=== PATIENT | female | born 1970 | race Caucasian/White ===

== ENCOUNTER 2019-07-01 12:02 | Emergency (ER) | payer BC, OTHER ==
--- NOTE | 2019-07-01 12:22 | EDM.PDOC ---
ED HPI GENERAL MEDICAL PROBLEM - General Chief Complaint: Eye Problems Stated Complaint: EYE INFECTION Time Seen by Provider: 07/01/19 12:22 Source of Information: Reports: Patient History Limitations: Reports: No Limitations - History of Present Illness Onset: Today Duration: Improving (with less redness) Associated Symptoms: Reports: No Other Symptoms, Other (States that her vision is slightly blurred in both eyes earlier today.) eyes Pain Score (Numeric/FACES): 2 - Related Data Allergies Allergy/AdvReac Type Severity Reaction Status Date / Time No Known Allergies Allergy Verified 03/19/16 08:28 Home Meds: Home Meds Albuterol Sulfate [Proair Hfa] 8.5 gm IH 03/19/16 [History] Budesonide/Formoterol [Symbicort 160-4.5 Mcg Inhaler] 10.2 gm IH 03/19/16 [ History] Zolpidem [Ambien] 07/01/19 [History] Past Medical History HEENT History: Reports: None Cardiovascular History: Reports: None Respiratory History: Reports: Asthma Gastrointestinal History: Reports: None Genitourinary History: Reports: None [employer]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 Musculoskeletal History: Reports: None Neurological History: Reports: None Psychiatric History: Reports: None Endocrine/Metabolic History: Reports: None Hematologic History: Reports: None Immunologic History: Reports: None Oncologic (Cancer) History: Reports: None Dermatologic History: Reports: None - Infectious Disease History Infectious Disease History: Reports: None - Past Surgical History Musculoskeletal Surgical History: Reports: Other (See Below) Social & Family History - Family History Family Medical History: Noncontributory - Caffeine Use Caffeine Use: Reports: None ED ROS GENERAL - Review of Systems Review Of Systems: See Below Constitutional: Reports: No Symptoms HEENT: Reports: Eye Discharge (yellow discharge from both eyes earlier today but has cleared up now.), Eye Pain (minor eye pain in OU but is getting better.) Respiratory: Reports: No Symptoms Cardiovascular: Reports: No Symptoms Endocrine: Reports: No Symptoms GI/Abdominal: Reports: No Symptoms Skin: Reports: No Symptoms Neurological: Reports: No Symptoms ED EXAM GENERAL W FULL EYE - Physical Exam Exam: See Below Exam Limited By: No Limitations General Appearance: Alert, WD/WN, No Apparent Distress Eye Exam: Bilateral Eye: EOMI, Normal Fundi, Normal Inspection, PERRL, Other ( Normal fundus exam.) Visual Acuity (R) 20/: 40 Visual Acuity (L) 20/: 30 (OU is 20/20) With Correction: No Eyelids: Bilateral: Normal Appearance Conjunctiva & Sclera: Bilateral: Injected (very slightly injected.) Cornea Exam: Bilateral: Normal Appearance Extraocular Movements: Bilateral: Intact Pupillary Size: Bilateral: 4 mm Pupillary Reaction: Bilateral: Brisk Anterior Chamber: Bilateral: Normal Appearance Posterior Chamber: Bilateral: Normal Funduscopic Ears: Normal External Exam, Normal Canal, Hearing Grossly Normal, Normal TMs Nose: Normal Inspection, Normal Mucosa, No Blood Throat/Mouth: Normal Inspection, Normal Lips, Normal Teeth, Normal Gums, Normal Oropharynx, Normal Voice, No Airway Compromise Head: Atraumatic, Normocephalic Neck: Normal Inspection, Supple, Non-Tender, Full Range of Motion Respiratory/Chest: No Respiratory Distress, Lungs Clear, Normal Breath Sounds, No Accessory Muscle Use, Chest Non-Tender Cardiovascular: Normal Peripheral Pulses, Regular Rate, Rhythm, No Edema, No Gallop, No JVD, No Murmur, No Rub GI/Abdominal: Normal Bowel Sounds, Soft, Non-Tender (Male) Exam: Deferred (Female) Exam: Deferred Rectal (Males) Exam: Deferred Rectal (Female) Exam: Deferred Neurological: Alert, Oriented, CN II-XII Intact, Normal Cognition, Normal Gait, Normal Reflexes, No Motor/Sensory Deficits Course - Vital Signs Text/Narrative:: I discussed with the patient that she most likely has conjunctivitis and that she should do fine with Maxidex drops. She agrees with the discharge plan. Last Recorded V/S: Last Vital Signs Temp 97.2 F 07/01/19 12:20 Pulse 67 07/01/19 12:20 Resp 16 07/01/19 12:20 BP 137/64 07/01/19 12:20 Pulse Ox 96 07/01/19 12:20 - Orders/Labs/Meds Orders: Active Orders 24 hr Category Date Time Status Visual Acuity [Vision Test] [RC] ASDIRECTED Care 07/01/19 12:06 Active Meds: Medications Discontinued Medications Generic Name Dose Route Start Last Admin Trade Name Freq PRN Reason Stop Dose Admin Neomycin/Polymyxin/Dexamethasone 5 ml 07/01/19 12:49 Maxitrol Ophth Susp EYEBOTH ASDIRECTED PRN conjunctivitis Neomycin/Polymyxin/Dexamethasone 5 ml 07/01/19 13:09 Maxitrol Ophth Susp EYEBOTH 07/01/19 13:10 ASDIRECTED ONE Departure - Departure Time of Disposition: 13:01 Disposition: Home, Self-Care 01 Condition: Good Clinical Impression: Conjunctivitis of both eyes Qualifiers: Conjunctivitis type: acute Acute conjunctivitis type: unspecified Qualified Code(s): H10.33 - Unspecified acute conjunctivitis, bilateral - Discharge Information *PRESCRIPTION DRUG MONITORING PROGRAM REVIEWED*: Yes *COPY OF PRESCRIPTION DRUG MONITORING REPORT IN PATIENT CALIN: Yes Referrals: PCP,Not In Area [Primary Care Provider] - Forms: ED Department Discharge Additional Instructions: Take your eye drops as follows: Day 1, 2 drops both eyes every 8 hours; Day 2, two drop each eye every 12 hours; Day 3, one drop every 12 hours and Day 4, one drop in each eye. No more drops after day 4. Follow up with your PCP or eye doctor in the next two to four days. Rest for the next 12 hours. Return to the ED if your condition gets worse or should you have any questions or concerns. The following information is given to patients seen in the emergency department who are being discharged to home. This information is to outline your options for follow-up care. We provide all patients seen in our emergency department with a follow-up referral. The need for follow-up, as well as the timing and circumstances, are variable depending upon the specifics of your emergency department visit. If you don't have a primary care physician on staff, we will provide you with a referral. We always advise you to contact your personal physician following an emergency department visit to inform them of the circumstance of the visit and for follow-up with them and/or the need for any referrals to a consulting specialist. The emergency department will also refer you to a specialist when appropriate. This referral assures that you have the opportunity for follow-up care with a specialist. All of these measure are taken in an effort to provide you with optimal care, which includes your follow-up. Under all circumstances we always encourage you to contact your private physician who remains a resource for coordinating your care. When calling for follow-up care, please make the office aware that this follow-up is from your recent emergency room visit. If for any reason you are refused follow-up, please contact the [facility] Emergency Department at and asked to speak to the emergency department charge nurse. Sepsis Event Note - Focused Exam Vital Signs: Vital Signs Temp Pulse Resp BP Pulse Ox 07/01/19 12:20 97.2 F 67 16 137/64 96 Date Exam was Performed: 07/01/19 Time Exam was Performed: 13:10 - My Orders Last 24 Hours: My Active Orders 07/01/19 12:06 Visual Acuity [Vision Test] [RC] ASDIRECTED - Assessment/Plan Last 24 Hours: My Active Orders 07/01/19 12:06 Visual Acuity [Vision Test] [RC] ASDIRECTED
[2019-07-01 12:24] VITALS: BP 137/64; PULSE 67
[2019-07-01] MEDS ORDERED: Dexamethasone/Neomycin/Polymyxin B Ophth Susp 5 ML Bottle EYEBOTH PRN (12:49)
[2019-07-01] MEDS ORDERED: Dexamethasone/Neomycin/Polymyxin B Ophth Susp 5 ML Bottle EYEBOTH ONE (13:09)
== END 2019-07-01 13:45 | disposition home or self-care (01) ==
LOC: MW.ED 12:02
DX: H10.33 Unspecified acute conjunctivitis, bilateral (principal); J45.909 Unspecified asthma, uncomplicated; Z79.51 Long term (current) use of inhaled steroids
CPT/HCPCS: 99282; A9270

== ENCOUNTER 2019-07-04 02:09 | Emergency (ER) | payer BC, OTHER ==
[2019-07-04 03:11] LABS: BLOOD UREA NITROGEN,BUN 18 mg/dL (7.0-18.0); CARBON DIOXIDE,CO2 25.7 mmol/L (21.0-32.0); CHLORIDE,CL 105 mmol/L (98-107); GLUCOSE RANDOM 104 mg/dL (74-106); LIPASE 224 U/L (73-393); SODIUM,NA 144 mmol/L (136-145)
[2019-07-04] MEDS ORDERED: Iopamidol 755 Mg/ML 100 ML Bottle IVPUSH ONE (03:40)
--- NOTE | 2019-07-04 04:04 | CR ---
Indication: Pain, shortness of breath and right upper quadrant pain Technique: Chest 2 views Comparison: None Findings: Cardiovascular and mediastinum: Heart size and vasculature are normal in caliber and appearance. Lungs and pleural spaces: Lungs are clear. No sign of infiltrate or mass. No sign of pleural effusion. No pneumothorax. Bones and soft tissues: No significant findings. Impression: Unremarkable two view chest Dictated by Carlos Delvalle MD @ Jul 04 2019 4:01AM Signed by Dr. Carlos Delvalle @ Jul 04 2019 4:02AM
--- NOTE | 2019-07-04 04:17 | CT ---
INDICATION: Right upper quadrant pain TECHNIQUE: CT abdomen and pelvis acquired with 100 cc Isovue 370 intravenous contrast. COMPARISON: None. FINDINGS: Lower chest: Trace basilar discoid atelectasis. Liver: Diffusely decreased density liver consistent with fatty infiltration without focal lesion. Mild sparring adjacent to the gallbladder fossa. Gallbladder and bile ducts: Unremarkable. No stones or inflammation. No biliary dilatation. Pancreas: Unremarkable. No mass or inflammation. Spleen: Unremarkable. Normal in size. No masses. Adrenal glands: Unremarkable. No nodules. Kidneys: Unremarkable. No masses, stones, or hydronephrosis. GI tract: Unremarkable. Normal in caliber. No sign of mass or inflammation. Normal appendix. Vasculature: Unremarkable. Pelvis: Bladder unremarkable. Status post hysterectomy. No adnexal mass. Bones: Mild degenerative disc disease lumbar spine. IMPRESSION: 1. No dilated bowel or localized inflammation. 2. Fatty infiltration of the liver. Please note that all CT scans at this facility use dose modulation, iterative reconstruction, and/or weight-based dosing when appropriate to reduce radiation dose to as low as reasonably achievable. Dictated by Carlos Delvalle MD @ Jul 04 2019 4:11AM Signed by Dr. Carlos Delvalle @ Jul 04 2019 4:16AM
--- NOTE | 2019-07-04 04:41 | EDM.PDOC ---
ED [facility] GENERAL MEDICAL PROBLEM - General Chief Complaint: Abdominal Pain Stated Complaint: PAIN UNDER RIB CAGE Time Seen by Provider: 07/04/19 02:13 - History of Present Illness INITIAL COMMENTS - FREE TEXT/NARRATIVE: HPI 48-year-old obese female presents for evaluation of right upper quadrant sharp, nonradiating pain that is exacerbated by twisting movements and coughing and woke her from her sleep at 2 AM, notes onset of nasal congestion, sneezing, and coughing this morning. No chest pain, shortness breath, history of DVT, PE, recent calf tenderness, swelling, immobilization, hemoptysis, or exogenous estrogen usage. M/S/F/SocHx notable for: please see HPI; remainder reviewed with patient and in chart. ROS: Negative constitutional, eye, cardiovascular, pulmonary, GI, , MSK, skin , neurologic, psychiatric, endocrine unless noted in the HPI. Exam HR 70, RR 18, BP 110/74, T 36.4C, SaO2 98% on room air. Gen: plus, nontoxic-appearing, resting in minimal discomfort. HEENT: NC, AT, PEERL, EOMI. Resp: Clear to auscultation bilaterally, normal work of breathing. Card: Regular rate and rhythm with no murmurs rubs or gallops, extremities warm and well perfused. GI: ND, mild RUQ TTP, no epigastric TTP, remainder of abdomen non-tender to palpation, negative South's sign, no rebound or guarding. : No CVA tenderness to percussion bilaterally. MSK: No visible deformities, strength and tone WNL. Skin: Normal color with no visible lesions. Neuro: alert and oriented 3, no facial asymmetry, vision and hearing WNL. Psych: Mood and affect appropriate. Focused Biliary Ultrasound Indication: Right upper quadrant pain. Views Obtained: Transverse and longitudinal biliary views. Transverse common bile duct. Findings: Negative sonographic South sign. No stones or sludge appreciated. Perpendicular measurement of the anterior gallbladder wall at 1.9 mm. No pericholecystic fluid. Labs / Imaging (pertinent): WBC 11.51, HB 14.5, sodium 144, potassium 4.0, total bilirubin 0.2, alkaline phosphatase 59, AST 57, ALT 82, lipase 224, troponin <0.050. HCG negative. UA - trace leukocyte esterase, negative nitrate, 1-2 WBCs, 1-2 RBCs, rare epithelial cells, rare bacteria. CXR: unremarkable two view chest. CT abdomen/pelvis: 1. No dilated bowel or localized inflammation. 2. Fatty infiltration of the liver. EKG: NSR and no new ST segment changes, new LBBB, or T-wave changes that would suggest acute ischemia. No findings of ischemia. MDM Previous chart, nursing note, and vitals reviewed. A: 48-year-old obese female presents for evaluation of right upper quadrant sharp, nonradiating pain that is exacerbated by twisting movements and coughing and woke her from her sleep at 2 AM, notes onset of nasal congestion, sneezing, and coughing this morning. DDx: Biliary disease (cholecystitis, cholelithiasis, choledocholithiasis, biliary colic), pancreatitis, appendicitis, ureterolithiasis, peptic ulcer disease, GERD, ACS, PE. Evaluation: Cardiothoracic no clear evidence of supradiaphragmatic etiology, chest x- ray unremarkable, ECG nonischemic, troponin negative. No features suggestive of ACS, unstable angina, pericarditis, myocarditis, pneumothorax, mediastinal air, pericardial, pleural effusions. History and exam are highly atypical for dissection, no further evaluation presently indicated. No features suggestive of PE, furthermore patient is PERC negative (age >= 50 - N, HR >= 100 - N, SaO2 < 95 - N, prior DVT - N, trauma or surgery in last 4 weeks - N, hemoptysis - N, exogenous estrogen - N, unilateral leg swelling - N). Intrabdominal - no evidence of an acute, clinically significant intrabdominal process. CT unremarkable, CBC, notable for mild leukocytosis, this is presently of unclear etiology. Remainder of CBC, CMP, lipase within clinically normal limits. [id number] ultrasound without evidence of acute pathology. Genitourinary - no evidence of ureterolithiasis, UTI, pyelonephritis, or . MSK - strongly suspect a muscle strain given the recurrence of symptoms with coughing and twisting movements. Recommend trial of ibuprofen and acetaminophen, PCP follow-up in 24-36 hours repeat evaluation further care as needed is recommended. Impression: abdominal pain. right lower rib Pain Score (Numeric/FACES): 8 - Related Data Allergies Allergy/AdvReac Type Severity Reaction Status Date / Time No Known Allergies Allergy Verified 07/04/19 02:23 Home Meds: Home Meds Albuterol Sulfate [Proair Hfa] 8.5 gm IH ASDIRECTED 03/19/16 [History] Budesonide/Formoterol [Symbicort 160-4.5 Mcg Inhaler] 10.2 gm IH ASDIRECTED [History] Zolpidem [Ambien] 1 tab PO DAILY 07/01/19 [History] Past Medical History HEENT History: Reports: None Cardiovascular History: Reports: None Respiratory History: Reports: Asthma Gastrointestinal History: Reports: None Genitourinary History: Reports: None MISSILE FACILITIES REPAIRER History: Reports: None Musculoskeletal History: Reports: None Neurological History: Reports: None Psychiatric History: Reports: None Endocrine/Metabolic History: Reports: None Insulin Pump Model and Sas Developer: None Hematologic History: Reports: None Immunologic History: Reports: None Oncologic (Cancer) History: Reports: None Dermatologic History: Reports: None - Infectious Disease History Infectious Disease History: Reports: None - Past Surgical History Head Surgeries/Procedures: Reports: None Musculoskeletal Surgical History: Reports: Other (See Below) Social & Family History - Family History Family Medical History: Noncontributory - Tobacco Use Smoking Status *Q: Current Every Day Smoker Years of Tobacco use: 30 Packs/Tins Daily: 0.5 - Caffeine Use Caffeine Use: Reports: Coffee - Recreational Drug Use Recreational Drug Use: No ED ROS GENERAL - Review of Systems Review Of Systems: See Below ED EXAM, GENERAL - Physical Exam Exam: See Below Course - Vital Signs Last Recorded V/S: Last Vital Signs Temp 36.4 C 07/04/19 02:24 Pulse 70 07/04/19 02:24 Resp 18 07/04/19 02:24 BP 110/74 07/04/19 02:24 Pulse Ox 98 07/04/19 02:24 - Orders/Labs/Meds Orders: Active Orders 24 hr Category Date Time Status EKG Documentation Completion [RC] STAT Care 07/04/19 02:34 Active Labs: Laboratory Tests 07/04/19 07/04/19 07/04/19 Range/Units 02:40 02:48 02:48 WBC 11.51 H (4.0-11.0) K/uL RBC 4.42 (4.30-5.90) M/uL Hgb 14.5 (12.0-16.0) g/dL Hct 42.3 (36.0-46.0) % MCV 95.7 (80.0-98.0) fL MCH 32.8 H (27.0-32.0) pg MCHC 34.3 (31.0-37.0) g/dL RDW Std Deviation 45.8 (28.0-62.0) fl RDW Coeff of Sabas 13 (11.0-15.0) % Plt Count 276 (150-400) K/uL MPV 8.80 (7.40-12.00) fL Neut % (Auto) 64.0 (48.0-80.0) % Lymph % (Auto) 24.9 (16.0-40.0) % [place] % (Auto) 8.9 (0.0-15.0) % Eos % (Auto) 1.9 (0.0-7.0) % Baso % (Auto) 0.3 (0.0-1.5) % Neut # (Auto) 7.4 H (1.4-5.7) K/uL Lymph # (Auto) 2.9 H (0.6-2.4) K/uL [place] # (Auto) 1.0 H (0.0-0.8) K/uL Eos # (Auto) 0.2 (0.0-0.7) K/uL Baso # (Auto) 0.0 (0.0-0.1) K/uL Nucleated RBC % 0.0 /100WBC Nucleated RBCs # 0 K/uL Sodium 144 (136-145) mmol/L Potassium 4.0 (3.5-5.1) mmol/L Chloride 105 (98-107) mmol/L Carbon Dioxide 25.7 (21.0-32.0) mmol/L BUN 18 (7.0-18.0) mg/dL Creatinine 0.6 (0.6-1.0) mg/dL Est Cr Clr Drug Dosing 89.70 mL/min Estimated GFR (MDRD) > 60.0 ml/min Glucose 104 (74-106) mg/dL Calcium 9.6 (8.5-10.1) mg/dL Total Bilirubin 0.2 (0.2-1.0) mg/dL AST 57 H (15-37) IU/L ALT 82 H (14-63) IU/L Alkaline Phosphatase 59 (46-116) U/L Troponin I < 0.050 (0.000-0.056) ng/mL Total Protein 7.7 (6.4-8.2) g/dL Albumin 4.5 (3.4-5.0) g/dL Globulin 3.2 (2.6-4.0) g/dL Albumin/Globulin Ratio 1.4 (0.9-1.6) Lipase 224 (73-393) U/L HCG, Qual NEGATIVE (NEG) Urine Color Urine Appearance Urine pH (5.0-8.0) Ur Specific [place] (1.001-1.035) Urine Protein (NEGATIVE) mg/dL Urine Glucose (UA) (NEGATIVE) mg/dL Urine Ketones (NEGATIVE) mg/dL Urine Occult Blood (NEGATIVE) Urine Nitrite (NEGATIVE) Urine Bilirubin (NEGATIVE) Urine Urobilinogen (<2.0) EU/dL Ur Leukocyte Esterase (NEGATIVE) Urine RBC (0-2/HPF) Urine WBC (0-5/HPF) Ur Epithelial Cells (NONE-FEW) Ur Squamous Epith Cells Urine Bacteria (NEGATIVE) 07/04/19 Range/Units 03:15 WBC (4.0-11.0) K/uL RBC (4.30-5.90) M/uL Hgb (12.0-16.0) g/dL Hct (36.0-46.0) % MCV (80.0-98.0) fL MCH (27.0-32.0) pg MCHC (31.0-37.0) g/dL RDW Std Deviation (28.0-62.0) fl RDW Coeff of Sabas (11.0-15.0) % Plt Count (150-400) K/uL MPV (7.40-12.00) fL Neut % (Auto) (48.0-80.0) % Lymph % (Auto) (16.0-40.0) % [place] % (Auto) (0.0-15.0) % Eos % (Auto) (0.0-7.0) % Baso % (Auto) (0.0-1.5) % Neut # (Auto) (1.4-5.7) K/uL Lymph # (Auto) (0.6-2.4) K/uL [place] # (Auto) (0.0-0.8) K/uL Eos # (Auto) (0.0-0.7) K/uL Baso # (Auto) (0.0-0.1) K/uL Nucleated RBC % /100WBC Nucleated RBCs # K/uL Sodium (136-145) mmol/L Potassium (3.5-5.1) mmol/L Chloride (98-107) mmol/L Carbon Dioxide (21.0-32.0) mmol/L BUN (7.0-18.0) mg/dL Creatinine (0.6-1.0) mg/dL Est Cr Clr Drug Dosing mL/min Estimated GFR (MDRD) ml/min Glucose (74-106) mg/dL Calcium (8.5-10.1) mg/dL Total Bilirubin (0.2-1.0) mg/dL AST (15-37) IU/L ALT (14-63) IU/L Alkaline Phosphatase (46-116) U/L Troponin I (0.000-0.056) ng/mL Total Protein (6.4-8.2) g/dL Albumin (3.4-5.0) g/dL Globulin (2.6-4.0) g/dL Albumin/Globulin Ratio (0.9-1.6) Lipase (73-393) U/L HCG, Qual (NEG) Urine Color YELLOW Urine Appearance CLEAR Urine pH 6.0 (5.0-8.0) Ur Specific [place] >= 1.030 (1.001-1.035) Urine Protein NEGATIVE (NEGATIVE) mg/dL Urine Glucose (UA) NEGATIVE (NEGATIVE) mg/dL Urine Ketones TRACE H (NEGATIVE) mg/dL Urine Occult Blood SMALL H (NEGATIVE) Urine Nitrite NEGATIVE (NEGATIVE) Urine Bilirubin NEGATIVE (NEGATIVE) Urine Urobilinogen 0.2 (<2.0) EU/dL Ur Leukocyte Esterase TRACE H (NEGATIVE) Urine RBC 1-2 (0-2/HPF) Urine WBC 1-2 (0-5/HPF) Ur Epithelial Cells RARE (NONE-FEW) Ur Squamous Epith Cells OCCASIONAL Urine Bacteria RARE (NEGATIVE) Meds: Medications Discontinued Medications Generic Name Dose Route Start Last Admin Trade Name Freq PRN Reason Stop Dose Admin Iopamidol 100 ml 07/04/19 03:40 07/04/19 03:41 Isovue-370 (76%) IVPUSH 07/04/19 03:41 100 ml ONETIME ONE Administration Departure - Departure Time of Disposition: 04:41 Disposition: Home, Self-Care 01 Clinical Impression: Abdominal pain - Discharge Information Referrals: PCP,Not In Area [Primary Care Provider] - Additional Instructions: You were in seen in the [facility] Emergency Department for evaluation of abdominal pain. At the time of your evaluation because your symptoms is tentatively believed to be due to a muscle strain due to your upper respiratory tract infection. You may take ibuprofen and acetaminophen instructed below for treatment of pain. Please read and follow all of the instructions below. Please follow up with your primary care physician in 24-36 hours repeat evaluation further care as needed. When calling for follow-up care, please make the office aware that this follow-up is from your recent emergency room visit. If for any reason you are refused follow-up, please contact the [facility] Emergency Department at and asked to speak to the emergency department charge nurse. Your care today was limited to identifying and treating emergent medical problems only. Many people have subtle differences in their test results that require follow up with their outpatient physician(s) to correctly determine if this represents a normal variation or concerning abnormality with respect to your specific health. The care given to you today was limited to identifying and treating emergent medical problems - you need to request a copy of all of your medical records from today's visit and follow up with your outpatient physician(s) to review both today's visit and your overall health. If you have any new symptoms or if you are at all concerned about your health please return immediately to the emergency department. Abdominal Pain The exact cause of your abdominal pain is not certain. Based upon the testing today you are felt to be at low risk for discharge. There are no current signs of a life threatening illness or injury. Your condition does not seem serious now; however, sometimes the signs of a serious problem may take more time to appear. For this reason, it is important for you to watch for any new symptoms, problems, or worsening of your condition. Over the next few days, the abdominal pain may come and go, or be continuous. Other common symptoms can include nausea and vomiting. Sometimes it can be difficult to tell if you feel nauseous , you may just feel bad and not associate that feeling with nausea. Constipation , diarrhea, and a fever may go along with the pain. The pain may continue even if treated correctly over the following days. Depending on how things go, sometimes the cause can become clear and may require further or different treatment. Additional evaluations, medications, or tests may be needed. If your symptoms do not worsen but you are still having pain after 12-24 hours, please call your primary care physician to arrange for further evaluation. Return to the emergency department if any of the following occur: Pain gets worse or moves to the right lower abdomen New or worsening vomiting or diarrhea Swelling of the abdomen Unable to pass gas or stool for more than 8 hours Fever of 100.4F (38C) or higher, or as directed by your healthcare provider. Blood in vomit or bowel movements (dark red or black color) If you have yellow skin or eyes or if you have dark brown urine. Weakness, dizziness Chest, arm, back, neck or jaw pain Unexpected vaginal bleeding or missed period Trouble breathing Confusion Fainting or loss of consciousness Rapid heart rate Seizure If you are light headed upon standing or passing out. If you are otherwise concerned about your health. Home Care Do not force yourself to eat, especially if having cramps, vomiting, or diarrhea. Water is important so you do not get dehydrated. Soup may also be good. Sports drinks may also help, especially if they are not too acidic. Make sure you don't drink sugary drinks as this can make things worse. Take liquids in small amounts. Caffeine sometimes makes the pain and cramping worse. Avoid dairy products if you have vomiting or diarrhea. Don't eat large amounts at a time. Wait a few minutes between bites. Eat a diet low in fiber (called a low-residue diet). Foods allowed include refined breads, white rice, fruit and vegetable juices without pulp, tender meats. These foods will pass more easily through the intestine. Avoid whole-grain foods, whole fruits and vegetables, meats, seeds and nuts, fried or fatty foods, dairy, alcohol and spicy foods until your symptoms go away. You make take over the counter Acetaminophen (Tylenol) and Ibuprofen (Motrin or Aleve) as directed below for relief of pain. Take 600 mg of ibuprofen (three 200 mg tablets) with a glass of water every 6-8 hours as needed for pain or fever. Do not take if you have ulcers, GI bleeding, are , or are allergic to ibuprofen. Take 1,000 mg of acetaminophen (two 500 mg tablets) with a glass of water every 6-8 hours as needed for pain. Do not take if you are allergic to acetaminophen. If you have liver disease, please reduce your dose to a maximum of 2,000 mg per day. You can take these medications at the same time or on separate schedules. Do not take for more than 10 days. Do not take with alcohol or other acetaminophen containing medications. This medication may cause a mildly upset stomach, if so take it with a small snack. Stop taking it if you have persistent abdominal pain, heartburn, or any stomach pain. Do not take this medication if you have known ulcers. Please read the warnings at the end of this document regarding these medications. IBUPROFEN WARNING: This drug may infrequently cause serious (rarely fatal) bleeding from the stomach or intestines. Also, related drugs rarely have caused blood clots to form, resulting in heart attacks and strokes. This medication might also rarely cause similar problems. Talk to your doctor or pharmacist about the benefits and risks of treatment, as well as other possible medication choices. If you notice any of the following rare but very serious side effects, stop taking ibuprofen and seek immediate medical attention: black stools, persistent stomach/abdominal pain, vomit that looks like coffee grounds, chest pain, weakness on one side of the body, sudden vision changes, slurred speech. IBUPROFEN SIDE EFFECTS: Upset stomach, nausea, vomiting, heartburn, headache, diarrhea, constipation, drowsiness, and dizziness may occur. If any of these effects persist or worsen, notify your doctor or pharmacist promptly. If your doctor has directed you to use this medication, remember that he or she has judged that the benefit to you is greater than the risk of side effects. Many people using this medication do not have serious side effects. Tell your doctor immediately if any of these serious side effects occur: stomach pain, swelling of the hands or feet, sudden or unexplained weight gain, ringing in the ears ( tinnitus). Tell your doctor immediately if any of these unlikely but serious side effects occur: vision changes, rapid or pounding heartbeat, easy bruising or bleeding, difficult/painful swallowing. Tell your doctor immediately if any of these highly unlikely but very serious side effects occur: change in amount of urine, severe headache, very stiff neck, mental/mood changes, persistent sore throat or fever. This drug may rarely cause serious (possibly fatal) liver disease. If you notice any of the following highly unlikely but very serious side effects, stop taking ibuprofen and consult your doctor or pharmacist immediately: yellowing eyes and skin, dark urine, unusual/extreme tiredness. An allergic reaction to this drug is unlikely, but seek immediate medical attention if it occurs. Symptoms of an allergic reaction include: rash, itching/ swelling (especially of the face/tongue/throat), severe dizziness, trouble breathing. This is not a complete list of possible side effects. ACETAMINOPHEN SIDE EFFECTS: This drug usually has no side effects. If you do not have liver problems, the maximum dose of acetaminophen for adults is 4 grams per day (4000 milligrams). Taking more than the maximum daily amount may cause serious (possibly fatal) liver damage. Get medical help right away if you have any of the following symptoms of liver damage: persistent nausea/vomiting, extreme tiredness, stomach/abdominal pain, yellowing eyes/skin, dark urine. If you have liver problems, consult your doctor or pharmacist for a safe dosage of this medication. A very serious allergic reaction to this drug is rare. However , get medical help right away if you notice any symptoms of a serious allergic reaction, including: rash, itching/swelling (especially of the face/tongue/ throat), severe dizziness, trouble breathing. This is not a complete list of possible side effects. If you notice other effects not listed above, contact your doctor or pharmacist. DRUG INTERACTIONS: Your healthcare professionals (e.g., doctor or pharmacist) may already be aware of any possible drug interactions and may be monitoring you for it. Do not start, stop or change the dosage of any medicine before checking with them first. This drug should not be used with the following medications because very serious interactions may occur: cidofovir, ketorolac. If you are currently using any of these medications listed above, tell your doctor or pharmacist before starting ibuprofen. Before using this medication, tell your doctor or pharmacist of all prescription and nonprescription/herbal products you may use, especially of: anti-platelet drugs (e.g., cilostazol, clopidogrel), oral bisphosphonates (e.g., alendronate), other medications for arthritis (e.g., aspirin, methotrexate), "blood thinners" (e.g., enoxaparin, heparin, warfarin), corticosteroids (e.g., prednisone), cyclosporine, desmopressin, high blood pressure drugs (including XUAN inhibitors such as captopril, angiotensin II receptor antagonists such as losartan, and beta- blockers such as metoprolol), lithium, pemetrexed, "water pills" (diuretics such as furosemide, hydrochlorothiazide, triamterene). Check all prescription and nonprescription medicine labels carefully for other pain/fever drugs ( NSAIDs such as aspirin, celecoxib, naproxen). These drugs are similar to ibuprofen, so taking one of these drugs while also taking ibuprofen may increase your risk of side effects. Consult your doctor or pharmacist for more details. However, if your doctor has prescribed low doses of aspirin to prevent heart attack or stroke (usually at dosages of 81-325 milligrams a day), you should continue to take the aspirin. Daily use of ibuprofen may decrease aspirin 's ability to prevent heart attack/stroke. Talk to your doctor about using a different medication (e.g., acetaminophen) to treat pain/fever. If you must take ibuprofen, talk to your doctor about possibly taking immediate-release aspirin (not enteric-coated) while also taking the ibuprofen dose apart from your aspirin dose. Do not increase your daily dose of aspirin or change the way you take aspirin/other medications without your doctor's approval. This document does not contain all possible interactions. Therefore, before using this product, tell your doctor or pharmacist of all the products you use. Keep a list of all your medications with you, and share the list with your doctor and pharmacist. Prescriptions: If you are uninsured or have financial difficulties with filling your prescription(s), you may consider using a free pharmacy discount service such as [employer] ([employer]iku[employer]) or [employer] ([employer]). These services allow you to search for a medication on your phone (or computer) and obtain a coupon that usually has a significant discount from the list bain at a pharmacy. Your physician as well as [facility] does not have a financial relationship with either of these services. You may also wish to speak with your physician to determine if lower cost prescriptions are possible. Obtaining primary care: 1. [facility] provides pediatrics (children), family medicine (children, adults, and some obstetrical care), and internal medicine (adults). Further specialty care is also available. Same day appointments are available. They may be contacted at [phone] and are open Sunday through Sunday 8 AM to 5 PM. [facility] are located at [facility], [address], [place] [address]. 2. [facility] offers family medicine, internal medicine, womens health, and further specialty care. [facility] may be contacted at [phone]. [facility] is located at [address] [place], [address]. 3. If you have health insurance, please also contact your insurer for a list of accepting providers under your policy, you may contact these providers for further health care. Occupational health: Work related injuries may consider following up with [facility], . Occupational health services are located at [address] [place] [phone] and are open Sunday through Sunday from 7: 30 am to 5:00 pm. Obstetrical and Gynecological Care: [facility], , Sunday through Sunday 8 AM to [address] [place] [address]. Eyecare: If you have an eye injury you should follow up with your model dresser or with [facility], at [phone] or [phone] , they are located at [address] [place] [address]. [facility] Sterling Ascencio DDS. [address] [facility] [place], [place]. Ph. [phone] Sebastian Ascencio DDS MS. [address] [facility] [address], [place], [place]. Ph. Shamir Puente DDS. [address] [place]. Ph. [phone] Tushar Dacosta DDS. [address] [facility] [address] [place], [place]. Ph. [phone] Guillermo Basilio DDS PC. [address] [address] [place], [place]. Ph. [phone] Gray Lozano DDS. [address] [facility]. Ph. [phone] [facility]. [address] , [place], [place]. Ph. [phone] [facility]. [address] [place] [address], [place]. Ph. [phone] [facility] [address] [place] [id number]. Ph. [facility]. [address] [place] [address] [address] [place]. Ph. [facility]. [address] [place] Ph. [phone] Sepsis Event Note - Evaluation Sepsis Screening Result: No Definite Risk - Focused Exam Vital Signs: Vital Signs Temp Pulse Resp BP Pulse Ox 07/04/19 02:24 36.4 C 70 18 110/74 98 Date Exam was Performed: 07/04/19 Time Exam was Performed: 04:40 - My Orders Last 24 Hours: My Active Orders 07/04/19 02:34 EKG Documentation Completion [RC] STAT - Assessment/Plan Last 24 Hours: My Active Orders 07/04/19 02:34 EKG Documentation Completion [RC] STAT
[2019-07-04 05:09] VITALS: BP 108/68; PULSE 59
== END 2019-07-04 04:58 | disposition home or self-care (01) ==
LOC: MW.ED 02:09
DX: R10.11 Right upper quadrant pain (principal); J45.909 Unspecified asthma, uncomplicated; F17.210 Nicotine dependence, cigarettes, uncomplicated; Z79.51 Long term (current) use of inhaled steroids
CPT/HCPCS: 36415; 71046; 74177; 80053; 81001; 83690; 84484; 84703; 85025; 93005; 99284; Q9967

== ENCOUNTER 2021-10-03 07:15 | Inpatient (IN) | payer BC, OTHER ==
[2021-10-03] MEDS ORDERED: methylPREDNISolone Sodium Succinate 40 MG/1 ML SDV IVPUSH ONE (07:20)
[2021-10-03] MEDS ORDERED: Albuterol/Ipratropium 3.0-0.5 MG/3 ML Neb Soln NEB ONE ×3 (07:20)
[2021-10-03] MEDS ORDERED: Albuterol/Ipratropium 3.0-0.5 MG/3 ML Neb Soln ONE (07:20)
[2021-10-03] MEDS ORDERED: Magnesium Sulfate/Water 2 GM in Premix Bag 1 BAG IV ONE (07:21)
[2021-10-03] MEDS ORDERED: Albuterol 0.083% 2.5 MG/3 ML Neb Soln NEB STA (09:01)
[2021-10-03 09:56] LABS: BLOOD UREA NITROGEN,BUN 11 mg/dL (7.0-18.0); CARBON DIOXIDE,CO2 29.5 mmol/L (21.0-32.0); CHLORIDE,CL 104 mmol/L (98-107); GLUCOSE RANDOM 128 mg/dL (74-106); SODIUM,NA 139 mmol/L (136-145)
[2021-10-03] MEDS ORDERED: Sodium Chloride 0.9% 10 ML Syringe FLUSH PRN (10:38)
[2021-10-03] MEDS ORDERED: Acetaminophen 325 MG Tab PO PRN (10:38)
[2021-10-03] MEDS ORDERED: Docusate Sodium 100 MG Cap PO PRN (10:38)
[2021-10-03] MEDS ORDERED: Ondansetron 4 MG/2 ML SDV IVPUSH PRN (10:38)
[2021-10-03] MEDS ORDERED: Albuterol 0.083% 2.5 MG/3 ML Neb Soln NEB PRN (10:38)
[2021-10-03] MEDS ORDERED: Sodium Chloride 0.9% 2.5 ML Syringe FLUSH PRN (10:38)
[2021-10-03] MEDS: Albuterol/Ipratropium 3.0-0.5 MG/3 ML Neb Soln NEB SCH ×4 (14:10→21:02)
[2021-10-03] MEDS: Nicotine 14 MG/24 Hr Patch TRDERM SCH (14:21)
[2021-10-03] MEDS: Loratadine 10 MG Tab PO SCH (14:23)
[2021-10-03] MEDS: methylPREDNISolone Sodium Succinate 40 MG/1 ML SDV IVPUSH SCH ×2 (14:23→21:02)
[2021-10-03] MEDS: Enoxaparin 40 MG/0.4 ML Syringe SUBCUT SCH (14:24)
[2021-10-03] MEDS: Montelukast 10 MG Tab PO SCH (20:58)
[2021-10-04] MEDS: Albuterol/Ipratropium 3.0-0.5 MG/3 ML Neb Soln NEB SCH ×3 (01:48→09:30)
[2021-10-04] MEDS: methylPREDNISolone Sodium Succinate 40 MG/1 ML SDV IVPUSH SCH ×3 (06:30→21:28)
[2021-10-04 06:35] LABS: BLOOD UREA NITROGEN,BUN 11 mg/dL (7.0-18.0); CHLORIDE,CL 106 mmol/L (98-107); GLUCOSE RANDOM 139 mg/dL (74-106); POTASSIUM,K 4.2 mmol/L (3.5-5.1); SODIUM,NA 139 mmol/L (136-145)
[2021-10-04] MEDS: Loratadine 10 MG Tab PO SCH (08:47)
[2021-10-04] MEDS: [UNRECOGNIZED DRUG - REMARK] TRDERM SCH (08:47)
[2021-10-04] MEDS: Nicotine 14 MG/24 Hr Patch TRDERM SCH (08:48)
[2021-10-04] MEDS: Enoxaparin 40 MG/0.4 ML Syringe SUBCUT SCH (11:40)
[2021-10-04] MEDS: Montelukast 10 MG Tab PO SCH (21:28)
[2021-10-05] MEDS: methylPREDNISolone Sodium Succinate 40 MG/1 ML SDV IVPUSH SCH ×2 (05:05→14:26)
[2021-10-05] MEDS: Nicotine 14 MG/24 Hr Patch TRDERM SCH (08:34)
[2021-10-05] MEDS: [UNRECOGNIZED DRUG - REMARK] TRDERM SCH (08:34)
[2021-10-05] MEDS: Loratadine 10 MG Tab PO SCH (08:35)
[2021-10-05 09:57] LABS: BLOOD UREA NITROGEN,BUN 14 mg/dL (7.0-18.0); CARBON DIOXIDE,CO2 27.2 mmol/L (21.0-32.0); CHLORIDE,CL 103 mmol/L (98-107); GLUCOSE RANDOM 150 mg/dL (74-106); POTASSIUM,K 4.2 mmol/L (3.5-5.1); SODIUM,NA 139 mmol/L (136-145)
[2021-10-05] MEDS: Enoxaparin 40 MG/0.4 ML Syringe SUBCUT SCH (11:18)
[2021-10-05 13:22] VITALS: BP 135/70; PULSE 77
== END 2021-10-05 15:20 | disposition home or self-care (01) | DRG 133 ==
LOC: MW.ED 07:15 → MW.MS 10:34
PROVIDERS: ADMIT Student in an Organized Health Care Education/Training Program; ATTEND Student in an Organized Health Care Education/Training Program
DX: J96.01 Acute respiratory failure with hypoxia (principal); J45.901 Unspecified asthma with (acute) exacerbation; F17.200 Nicotine dependence, unspecified, uncomplicated; F10.10 Alcohol abuse, uncomplicated; Z20.822 Contact with and (suspected) exposure to COVID-19; Z71.6 Tobacco abuse counseling
CPT/HCPCS: 36415; 36600; 71045; 71045-26; 80048; 82803; 83735; 85025; 93005; 94640; 96365; 96375; 99291; A9270-GY; J1650; J2920; J3475; J7620-GY; U0002

== ENCOUNTER 2024-04-22 10:22 | Day surgery (SDC) | payer OTHER ==
[~2024-04-22 10:22] MED LIST: Sodium Chloride 0.9% 10 ML Syringe FLUSH PRN; Sodium Chloride 0.9% 2.5 ML Syringe FLUSH PRN; Sodium Chloride 0.9% 20 ML SDV IV PRN
[2024-04-22] MEDS: Lactated Ringers 1,000 ML IV SCH (10:50)
[2024-04-22] MEDS ORDERED: propofoL 500 MG/50 ML 50 ML ONE (12:58)
[2024-04-22] MEDS ORDERED: Lidocaine 2% 5 ML SDV ONE (12:58)
[2024-04-22] MEDS ORDERED: Propofol 200 MG/20 ML SDV ONE ×2 (13:42→13:44)
[2024-04-22 14:26] VITALS: BP 131/66; PULSE 69
== END 2024-04-22 14:30 | disposition home or self-care (01) ==
LOC: MW.SDS 10:22
PROVIDERS: ATTEND Surgery
DX: B37.81 Candidal esophagitis (principal); K44.9 Diaphragmatic hernia without obstruction or gangrene; K21.9 Gastro-esophageal reflux disease without esophagitis; J45.909 Unspecified asthma, uncomplicated; Z79.899 Other long term (current) drug therapy
CPT/HCPCS: 43239; 45380; J2704; J7120; J3490